=== PATIENT | female | born 1980 | race Caucasian/White ===

== ENCOUNTER → 2016-10-24 | Outpatient (CLI) | payer BC | LOC: RAD 14:36 | PROVIDERS: ATTEND Student in an Organized Health Care Education/Training Program | DX: N97.9 Female infertility, unspecified (principal) | CPT/HCPCS: 58340; 74740 ==

== ENCOUNTER 2016-12-15 09:03 | Emergency (ER) | payer BC ==
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
[2016-12-15 11:57] VITALS: BP 129/78
== END 2016-12-15 11:50 | disposition home or self-care (01) ==
LOC: ER 09:03
DX: S89.91XA Unspecified injury of right lower leg, initial encounter (principal); M25.561 Pain in right knee; V89.0XXA Person injured in unspecified motor-vehicle accident, nontraffic, initial encounter
CPT/HCPCS: 99283; 73564; L1830